=== PATIENT | female | born 1945 | race Hispanic/Latino ===

== ENCOUNTER → 2018-03-04 | Outpatient (CLI) | payer MEDICARE, OTHER | END | disposition home or self-care (01) | LOC: RAH 14:42 | PROVIDERS: ATTEND Orthopaedic Surgery | DX: S83.232A Complex tear of medial meniscus, current injury, left knee, initial encounter (principal); M17.12 Unilateral primary osteoarthritis, left knee; M25.462 Effusion, left knee; M25.762 Osteophyte, left knee; X58.XXXA Exposure to other specified factors, initial encounter; Y93.89 Activity, other specified; Y92.89 Other specified places as the place of occurrence of the external cause; Y99.8 Other external cause status | CPT/HCPCS: 73721 ==

== ENCOUNTER 2018-06-10 06:58 | Inpatient (IN) | payer OTHER | END 2018-06-12 13:10 | disposition home or self-care (01) | LOC: DAHIP 06:58 → WSH 12:30 | PROC: 0UT20ZZ Resection of Bilateral Ovaries, Open Approach (ICD-10-PCS; principal; 2018-06-10 08:17) | PROC: 0UT70ZZ Resection of Bilateral Fallopian Tubes, Open Approach (ICD-10-PCS; 2018-06-10 08:17) | PROC: 0UT90ZZ Resection of Uterus, Open Approach (ICD-10-PCS; 2018-06-10 08:17) | DX: N81.89 Other female genital prolapse (principal); N73.6 Female pelvic peritoneal adhesions (postinfective) ==

== ENCOUNTER → 2019-07-28 | Outpatient (CLI) | payer OTHER ==
[~2019-07-28] MED LIST: ASPI-556 PO; GLIM1TAB18 PO; KETO15CR2 TP; LOSA50TA64 PO; MONT10TA26 PO; PERM60CR4 TP; SIMV10TA97 PO
== END | disposition home or self-care (01) ==
LOC: RAH 13:54
DX: N63.42 Unspecified lump in left breast, subareolar (principal); N62 Hypertrophy of breast
CPT/HCPCS: 76641